=== PATIENT | male | born 1995 | race Two or more races ===

== ENCOUNTER 2024-05-28 09:36 | Inpatient (IN) | payer BC, OTHER ==
[~2024-05-28] VITALS: Ht 160 cm; Wt 54.4 kg
[2024-05-28 10:02] LABS: DIFFERENTIAL COMMENT 0; EOSINOPHILS % 0.1 % (0.0-5.0); HEMATOCRIT. 37.7 % (42.0-52.0); HEMOGLOBIN. 12.3 g/dL (14.0-18.0); LYMPHOCYTES % 12.3 % (20.0-50.0); MEAN CORPUSCULAR HEMOGLOBIN 24.4 pg (28.0-32.0); MEAN CORPUSCULAR HGB CONC 32.7 g/dL (31.0-37.0); MEAN CORPUSCULAR VOLUME 74.7 fL (80.0-94.0); MEAN PLATELET VOLUME 8.3 fl (7.4-10.4); MONOCYTES % 8.9 % (2.0-8.0); NEUTROPHILS % 77.7 % (40.0-76.0); PLATELET 224 x1000/uL (130-400); RED BLOOD CELL COUNT 5.05 mill/uL (4.7-6.1); RED CELL DISTRIBUTION WIDTH 15.2 % (11.6-14.6)
[2024-05-28] MEDS: ONDANSETRON HCL 4MG/2ML INJ IV STA (10:14)
[2024-05-28] MEDS: SODIUM CHLORIDE 0.9% 1,000 ML IV ONE (10:14)
[2024-05-28 10:16] LABS: CHLORIDE 98 mEq/L (98-107); POTASSIUM 3.6 mEq/L (3.5-5.1); SODIUM 139 mEq/L (136-145)
[2024-05-28 10:17] LABS: CALCIUM 9.8 mg/dL (8.7-10.4); CARBON DIOXIDE 23 mEq/L (21-32)
[2024-05-28 10:22] LABS: CREATININE 0.9 mg/dL (0.6-1.3); GLUCOSE 142 mg/dL (70-105); UREA NITROGEN BLOOD 7 mg/dL (9-23)
[2024-05-28 10:32] LABS: ETHANOL BLOOD < 10 mg/dL (<10)
[2024-05-28] MEDS: LEVETIRACETAM 500MG PREMIX 100 ML IV ONE (10:43)
[2024-05-28] MEDS: LEVETIRACETAM 1000MG PREMIX 100 ML IV ONE (12:40)
[2024-05-28] MEDS: MORPHINE SULFATE 4 MG/ML INJ (FOR IV/IM USE) IV ONE (13:37)
[2024-05-28] MEDS ORDERED: ONDANSETRON HCL 4MG/2ML INJ IV PRN (14:30)
[2024-05-28] MEDS ORDERED: GUAIFENESIN 200MG/10ML SUGAR FREE UDC PO PRN (14:30)
[2024-05-28] MEDS ORDERED: CLONIDINE 0.1MG TABLET PO PRN (14:30)
[2024-05-28] MEDS ORDERED: ACETAMINOPHEN 325MG TABLET PO PRN (14:30)
[2024-05-28] MEDS ORDERED: MAGNESIUM/ALUMINUM HYDROXIDE/SIMETHICONE 30ML UDC PO PRN (14:30)
[2024-05-28] MEDS ORDERED: DOCUSATE SODIUM 100MG CAPSULE PO PRN (14:30)
[2024-05-28] MEDS ORDERED: IPRATROPIUM/ALBUTEROL 0.5-3(2.5)MG/3ML NEB HHN PRN (14:30)
[2024-05-28 14:35] LABS: CLARITY URINE CLOUDY (CLEAR); COLOR URINE DARK YELLOW (YELLOW); GLUCOSE URINE NEGATIVE (NEGATIVE); KETONES URINE 3+ (NEGATIVE); LEUKOCYTE ESTERASE URINE TRACE (NEGATIVE); NITRITE URINE NEGATIVE (NEGATIVE); OCCULT BLOOD URINE NEGATIVE (NEGATIVE); PROTEIN URINE 3+ (NEGATIVE); SPECIFIC GRAVITY URINE 1.029 (1.005-1.030)
[2024-05-28 14:57] LABS: *AMPHETAMINES SCREEN URINE NEGATIVE (NEGATIVE); *BARBITURATES SCREEN URINE NEGATIVE (NEGATIVE); *BENZODIAZEPINES SCREEN URINE NEGATIVE (NEGATIVE); *COCAINE SCREEN URINE NEGATIVE (NEGATIVE); CANNABINOID URINE SCREEN PRESUMPTIVE POSITIVE (NEGATIVE); ECSTASY MDMA SCREEN URINE NEGATIVE (NEGATIVE); METHADONE URINE SCREEN NEGATIVE (NEGATIVE); OPIATES URINE SCREEN NEGATIVE (NEGATIVE); PHENCYCLIDINE URINE SCREEN NEGATIVE (NEGATIVE)
[2024-05-28 15:03] LABS: RBC URINE 0-2 /hpf (0-2); SQUAMOUS EPITHELIAL CELL URINE 1+ /lpf (RARE/1+); WBC URINE 0-2 /hpf (0-2)
[2024-05-28 15:04] LABS: BACTERIA URINE NONE SEEN; MUCUS URINE 1+ /lpf (NONE/TRACE); YEAST URINE NONE SEEN
[2024-05-28] MEDS: PANTOPRAZOLE SODIUM 40 MG/VIAL IV SCH (15:50)
[2024-05-28] MEDS: THIAMINE HCL 100MG TABLET PO SCH (15:51)
[2024-05-28] MEDS: MULTIVITAMINS,THER W-MINERALS TABLET PO SCH (15:51)
[2024-05-28] MEDS: MVI, ADULT NO.1 10 ML, FOLIC ACID 1 MG, THIAMINE HCL 100 MG in SODIUM CHLORIDE 0.9% 1,0... IV SCH (15:52)
[2024-05-28] MEDS: LORAZEPAM 2MG/ML INJ IV PRN (16:05)
[2024-05-28 16:22] LABS: IRON 114 ug/dL (65-175)
[2024-05-28 16:25] LABS: ALANINE AMINOTRANSFERASE 27 IU/L (10-49); ALBUMIN 4.3 g/dL (3.2-4.8); ASPARTATE AMINOTRANSFERASE 94 IU/L (<34); BILIRUBIN DIRECT 0.6 mg/dL (<=3.0); BILIRUBIN TOTAL 1.7 mg/dL (0.1-1.0); GAMMA GLUTAMYL TRANSPEPTIDASE 149 IU/L (<73); PROTEIN TOTAL 7.3 g/dL (6.0-8.3); TOTAL IRON BINDING CAPACITY 269 ug/dl (250-425)
[2024-05-28 16:30] LABS: FERRITIN 125 ng/mL (22-322); FOLIC ACID (FOLATE) SERUM 19.93 ng/mL (>5.38); VITAMIN B12 SERUM 428 pg/mL (211-911)
[2024-05-28 16:41] LABS: HEPATITIS B SURFACE ANTIGEN NEGATIVE (Negative)
[2024-05-28 17:01] LABS: HEPATITIS A AB IGM NEGATIVE (Negative)
[2024-05-28 17:02] LABS: HEPATITIS B CORE AB IGM NEGATIVE (Negative); HEPATITIS C AB NON REACTIVE (Neg) (Negative)
[2024-05-28] MEDS: LACTATED RINGERS 1,000 ML IV ONE (18:06)
[2024-05-28 20:41] VITALS: BP 113/70; PULSE 64; RESP 18; TEMP 36.83628; O2SAT 100
[2024-05-28] MEDS ORDERED: LEVETIRACETAM 500MG in NACL 100ML PREMIX IV SCH (21:00)
[2024-05-28 22:00] VITALS: BP 114/67; PULSE 64; RESP 18; TEMP 36.5848
[2024-05-28] MEDS: CHLORDIAZEPOXIDE 25MG CAPSULE PO SCH (22:05)
[2024-05-28] MEDS: LEVETIRACETAM 500MG PREMIX 100 ML IV SCH (22:05)
[2024-05-28] MEDS: ACETAMINOPHEN 325MG TABLET PO PRN (22:06)
[2024-05-29] VITALS: BP 111/70; PULSE 78; RESP 18; TEMP 36.3918; O2SAT 99
[2024-05-29 00:07] LABS: CREATINE KINASE 158 IU/L (46-171)
[2024-05-29 00:10] LABS: CREATINE KINASE MB FRACTION < 0.5 ng/mL (0.5-3.6)
[2024-05-29 00:11] LABS: TROPONIN I HIGH SENSITIVITY 4 ng/L (3.0-53)
[2024-05-29] MEDS ORDERED: THIA100T88 PO (00:41)
[2024-05-29] MEDS ORDERED: OXYC1TAB5 PO (00:41)
[2024-05-29] MEDS ORDERED: LEVE500T19 PO (00:41)
[2024-05-29 04:00] VITALS: BP 107/76; PULSE 77; RESP 18; TEMP 36.3918; O2SAT 100
[2024-05-29 06:51] LABS: CALCIUM 8.8 mg/dL (8.7-10.4); CHLORIDE 101 mEq/L (98-107); POTASSIUM 3.4 mEq/L (3.5-5.1); SODIUM 136 mEq/L (136-145)
[2024-05-29 06:52] LABS: CARBON DIOXIDE 28 mEq/L (21-32)
[2024-05-29 06:56] LABS: CREATINE KINASE MB FRACTION < 0.5 ng/mL (0.5-3.6)
[2024-05-29 06:57] LABS: CREATININE 0.7 mg/dL (0.6-1.3); GLUCOSE 97 mg/dL (70-105); TRIGLYCERIDE 56 mg/dL (0-150); UREA NITROGEN BLOOD 6 mg/dL (9-23)
[2024-05-29 06:58] LABS: LDL CHOLESTEROL 43 mg/dL (5-100)
[2024-05-29 06:59] LABS: CHOLESTEROL 142 mg/dL (<200); HDL CHOLESTEROL 78 mg/dL (>55); T4 FREE 1.11 ng/dL (0.89-1.76); THYROID STIMULATING HORMONE 0.65 uIU/mL (0.55-4.78)
[2024-05-29 07:00] LABS: CREATINE KINASE 145 IU/L (46-171); PHOSPHORUS 2.8 mg/dL (2.5-4.9)
[2024-05-29 07:20] LABS: TROPONIN I HIGH SENSITIVITY < 4 ng/L (3.0-53)
[2024-05-29 07:38] LABS: HEMATOCRIT. 34.6 % (42.0-52.0); HEMOGLOBIN. 10.6 g/dL (14.0-18.0); MEAN CORPUSCULAR HEMOGLOBIN 23.6 pg (28.0-32.0); MEAN CORPUSCULAR HGB CONC 30.7 g/dL (31.0-37.0); MEAN CORPUSCULAR VOLUME 76.8 fL (80.0-94.0); MEAN PLATELET VOLUME 8.7 fl (7.4-10.4); PLATELET 163 x1000/uL (130-400); RED CELL DISTRIBUTION WIDTH 15.8 % (11.6-14.6); WHITE BLOOD COUNT 4.3 x1000/uL (4.5-11.0)
[2024-05-29 07:49] LABS: DIFFERENTIAL COMMENT 1
[2024-05-29 08:00] VITALS: BP 105/73; PULSE 70; RESP 18; TEMP 36.50292; O2SAT 99
[2024-05-29] MEDS: FOLIC ACID 1MG TABLET PO SCH (09:18)
[2024-05-29] MEDS: KETOROLAC 15MG/ML VIAL IV PRN (09:19)
[2024-05-29 11:36] LABS: ALANINE AMINOTRANSFERASE 22 IU/L (10-49); ALBUMIN 3.6 g/dL (3.2-4.8); ASPARTATE AMINOTRANSFERASE 70 IU/L (<34); BILIRUBIN DIRECT 0.5 mg/dL (<=3.0); BILIRUBIN TOTAL 1.6 mg/dL (0.1-1.0); PROTEIN TOTAL 6.2 g/dL (6.0-8.3)
[2024-05-29 12:00] VITALS: BP 126/84; PULSE 81; RESP 18; TEMP 36.00288; O2SAT 100
[2024-05-29] MEDS: LACTATED RINGERS 1,000 ML IV SCH (12:03)
[2024-05-29] MEDS: MAGNESIUM 4 G PREMIX 100 ML IV NR (13:55)
[2024-05-29] MEDS: INFLUENZA VACCINE 05/PF 0.5 ML SYRINGE IM ONE (15:30)
[2024-05-29] MEDS: PNEUMOCOCCAL 20-VAL CONJ-DIP CRM 0.5ML IM ONE (15:30)
[2024-05-29 16:00] VITALS: BP 119/81; PULSE 70; RESP 20; TEMP 36.114; O2SAT 100
[2024-05-29 18:09] LABS: HYPOCHROMASIA 1+; MICROCYTOSIS 1+; PLATELET ESTIMATE NORMAL
[2024-05-29 20:00] VITALS: BP 116/80; PULSE 64; RESP 19; TEMP 36.44736; O2SAT 98
[2024-05-30] VITALS: BP 123/77; PULSE 68; RESP 19; TEMP 36.44736; O2SAT 98
[2024-05-30 04:00] VITALS: BP 118/84; PULSE 69; RESP 19; TEMP 36.78072; O2SAT 99
[2024-05-30 06:33] LABS: CALCIUM 8.9 mg/dL (8.7-10.4); CHLORIDE 102 mEq/L (98-107); SODIUM 137 mEq/L (136-145)
[2024-05-30 06:34] LABS: CARBON DIOXIDE 30 mEq/L (21-32)
[2024-05-30 06:38] LABS: CREATININE 0.7 mg/dL (0.6-1.3)
[2024-05-30 06:39] LABS: GLUCOSE 98 mg/dL (70-105)
[2024-05-30 06:59] LABS: UREA NITROGEN BLOOD < 5 mg/dL (9-23)
[2024-05-30 08:00] VITALS: BP 114/72; PULSE 82; RESP 16; TEMP 36.3918; O2SAT 100
[2024-05-30] MEDS: POTASSIUM CHLORIDE 20MEQ TABLET SR PO NR (08:57)
[2024-05-30 12:00] VITALS: BP 112/66; PULSE 70; RESP 16; TEMP 36.33624; O2SAT 100
[2024-05-30] MEDS ORDERED: CHLO25CA10 PO (13:02)
[2024-05-30 13:20] VITALS: BP 113/66; PULSE 82; TEMP 97.6; O2SAT 100
== END 2024-05-30 16:30 | disposition home or self-care (01) | DRG 100 ==
LOC: ER 09:36 → 5WST 13:54 → EDBEDREQ 13:56 → EDBEDREQSVC 13:56 → EDBEDREQTM 13:56 → 7WST 21:05
PROVIDERS: ADMIT Preventive Medicine Clinical Informatics; ATTEND Preventive Medicine Clinical Informatics
DX: G40.509 Epileptic seizures related to external causes, not intractable, without status epilepticus (principal); G92.8 Other toxic encephalopathy; F10.139 Alcohol abuse with withdrawal, unspecified; D50.9 Iron deficiency anemia, unspecified; E87.6 Hypokalemia; E83.42 Hypomagnesemia; F15.90 Other stimulant use, unspecified, uncomplicated; R73.9 Hyperglycemia, unspecified; F12.90 Cannabis use, unspecified, uncomplicated; F17.210 Nicotine dependence, cigarettes, uncomplicated; K76.0 Fatty (change of) liver, not elsewhere classified; Z79.899 Other long term (current) drug therapy; Z71.41 Alcohol abuse counseling and surveillance of alcoholic
CPT/HCPCS: 36415; 71045; 74176; 80048; 80061; 80076; 80305; 80320; 81003; 82550; 82553; 82607; 82728; 82746; 82977; 83540; 83550; 83735; 84100; 84145; 84439; 84443; 84484; 85025; 86705; 86709; 87340; 99285; J1885; J1953; J2060; J2270; J2405; J2470; J3411; J3475; J3490; J7030; J7120; G0480